=== PATIENT | female | born 2000 | race Two or more races ===

== ENCOUNTER 2025-04-24 12:25 | Emergency (ER) | payer BC ==
[~2025-04-24] VITALS: Ht 167.6 cm; Wt 65.8 kg
[2025-04-24] MEDS ORDERED: KETOROLAC TROMETHAMINE 15 MG/ML VIAL ONE (12:57)
[2025-04-24] MEDS ORDERED: ONDANSETRON HCL/PF 4 MG/2 ML VIAL ONE (12:57)
[2025-04-24 13:11] LABS: PLATELET COUNT (AUTO) 200 K/uL (150-450); RED BLOOD CELL COUNT(AUTO) 4.82 MIL/uL (4.0-5.2); RED CELL DISTRIBUTION WIDTH 13.4 % (11.5-15.0); WHITE BLOOD COUNT (AUTO) 9.5 K/uL (4.3-11.0)
[2025-04-24] MEDS: IV NS 0.9% 1,000 ML BAG IV ONE (13:11)
[2025-04-24] MEDS: ONDANSETRON HCL/PF 4 MG/2 ML VIAL IVP ONE (13:12)
[2025-04-24] MEDS: KETOROLAC TROMETHAMINE 15 MG/ML VIAL IV ONE (13:14)
[2025-04-24 13:20] LABS: APPEARANCE,URINE CLEAR (CLEAR); BLOOD, URINE TRACE-INTA Ery/uL (NEGATIVE); LEUKOCYTE ESTERASE ,URINE TRACE (NEGATIVE); NITRITE, URINE NEGATIVE (NEGATIVE); UGLUCOSE NEGATIVE (NEGATIVE)
[2025-04-24 13:30] LABS: ASPARTATE AMINOTRANSFERASE 17.0 U/L (15-37); CALCIUM, SERUM 9.2 mg/dL (8.5-10.1); CREATININE 0.8 mg/dL (0.6-1.3); SODIUM SERUM 139.0 mmol/L (136-145); TOTAL PROTEIN, SERUM 7.8 g/dL (6.4-8.2); UREA NITROGEN, BLOOD 6.0 mg/dL (7-18)
[2025-04-24 13:39] LABS: ADD URINE CULTURE YES
[2025-04-24] MEDS ORDERED: PRED50TA PO (16:09)
[2025-04-24 16:47] VITALS: BP 119/88; TEMP 98.2; O2SAT 98
== END 2025-04-24 16:48 | disposition home or self-care (01) ==
LOC: ER 12:40
DX: R10.32 Left lower quadrant pain (principal); R11.2 Nausea with vomiting, unspecified; R10.2 Pelvic and perineal pain; F41.9 Anxiety disorder, unspecified; Z90.49 Acquired absence of other specified parts of digestive tract
CPT/HCPCS: 99285; 74176; 96374; 76856; 96361; 96375; 85025; 80048; 83690; 80076; 81001; 36415; 84702; J1885; J2405; J7030; 87086-TC